=== PATIENT | female | born 1930 | race Caucasian/White ===

== ENCOUNTER 2018-02-28 10:30 | Emergency (ER) | payer MEDICARE, OTHER ==
[2018-02-28 11:32] VITALS: BP 146/65
--- NOTE | 2018-02-28 11:46 | UC ---
Laceration HPI - HPI Summary HPI Summary: 87 y/o female presents to the urgent care accompany by Daughter in-law c/o left elbow skin avulsion s/p scratching her elbow w/ the shower door handle this morning at 0930AM. Pt reports she was sitting in the toilet and she din't use the walker to get up and she slipped and scratched her left elbow w/ the shower door. Daughter in law states bleeding was mild and stopped w/ pressure and she didn't hit het ENGLISH or LOC. Pt states pain is mild 2/10 w/ touch and can move elbow and left arm w/o any problem. Pt denies numbness or tingling sensation over the left hand, dizziness, ENGLISH, SOB, chest pain, abdominal pain, N/V/D. Delvinarunter in lw states Pt probably had a Tetanus vaccines about 2 years ago, but will confirm this Friday w/ PCP since Pt has a f/u appt. - History Of Current Complaint Chief Complaint: UCLaceration Stated Complaint: S/P FALL LEFT ELBOW LACERATION Time Seen by Provider: 02/28/18 11:44 Hx Obtained From: Patient, Family/Data Center Manager - Arely in law Laceration Location: Elbow - left lateral side of elbow Onset/Duration: Sudden Onset - 0930AM, Lasting Hours - 2 hrs Severity: Mild Pain Intensity: 2 - at touch Pain Scale Used: 0-10 Numeric Aggravating Factors: Other: - touch - Allergies/Home Medications Allergies/Adverse Reactions: Allergies Allergy/AdvReac Type Severity Reaction Status Date / Time No Known Allergies Allergy Verified 02/28/18 11:27 Home Medications: Home Medications Atorvastatin* [Lipitor 10 MG*] 10 mg PO BEDTIME 02/28/18 [History Confirmed ] Carbamazepine [Carbatrol] 100 mg PO BID 02/28/18 [History Confirmed 02/28/18] Cholecalciferol TAB* [Vitamin D TAB*] 2,000 units PO DAILY 02/28/18 [History Confirmed 02/28/18] Triamterene/HCTZ 37.5-25 MG* [Dyazide CAP*] 1 cap PO DAILY 02/28/18 [History Confirmed 02/28/18] lamoTRIgine [Lamotrigine] 25 mg PO BID 02/28/18 [History Confirmed 02/28/18] PMH/Surg Hx/FS Hx/Imm Hx Previously Healthy: Yes Other Endocrine History: Vitamin D defficieny Cardiovascular History: Hypertension Neurological History: Dementia - alzheimer, Seizures - Surgical History Surgical History: None - Family History Known Family History: Positive: Hypertension - Social History Occupation: Retired Lives: With Family Alcohol Use: None Substance Use Type: None Smoking Status (MU): Never Smoked Tobacco Review of Systems Constitutional: Negative Skin: Bruising - and superficial laceration of avulsed skin in the left elbow s/ p injury Eyes: Negative ENT: Negative Respiratory: Negative Cardiovascular: Negative Gastrointestinal: Negative Genitourinary: Negative Motor: Negative Neurovascular: Negative Musculoskeletal: Negative Neurological: Negative Psychological: Negative Is Patient Immunocompromised?: No All Other Systems Reviewed And Are Negative: Yes Physical Exam - Summary Physical Exam Summary: Vital Signs Reviewed: Yes General: well developed, well nourished old thin female sitting in the examining table w/o any apparent distress Eye Exam: Normal Eyes: Positive: Conjunctiva Clear - PERRLA, EOMI, fundi grossly normal ENT: Positive: Normal ENT inspection, Hearing grossly normal, Pharynx normal, TMs normal Neck: Positive: Supple, Nontender, No Lymphadenopathy Respiratory: Positive: Chest non-tender, Lungs clear, Normal breath sounds, No respiratory distress Cardiovascular: Positive: RRR, No Murmur, Pulses Normal, Brisk Capillary Refill Abdomen Description: Positive: Nontender, No Organomegaly, Soft. Negative: CVA Tenderness (R), CVA Tenderness (L) Bowel Sounds: Positive: Present Musculoskeletal: Positive: Strength Intact, ROM Intact, No Edema Neurological: Positive: Alert, Muscle Tone Normal Psychological Exam: Normal Skin: Positive:Lateral side of LF elbow near the lateral epicondyle and proximal left forearm with a skin avulsion superficial laceration about 8.0cm in size, non bleeding, no foreign body observed. mild tenderness to palpation, mild ecchymosis around skin tear w/ bruising. FROM of LF arm and LF elbow, sensation intact, capillary refill brisk, and pulses WNL. Triage Information Reviewed: Yes Vital Signs: Initial Vital Signs Temp 97.4 F 02/28/18 11:22 Pulse 75 02/28/18 11:22 Resp 20 02/28/18 11:22 BP 146/65 02/28/18 11:22 Pulse Ox 100 02/28/18 11:22 Laceration Repair - Laceration Repair 1 Description: Irregular - semilunar skin avulsion superficial laceration Laceration Size After Repair: Length (cm) - 8.0 Modified For Repair: No Cleansing Completed Via Routine Prep: Yes Irrigation With Pressure Irrigation Device: Yes Closure Material: SteriStrips - 3 GEL foam applied Suture Of: Skin Laceration Course/Dx - Course/Dx Course Of Treatment: 87 y/o female presents to the urgent care accompany by Daughter in-law c/o left elbow skin avulsion s/p scratching her elbow w/ the shower door handle this morning at 0930AM. Pt reports she was sitting in the toilet and she din't use the walker to get up and she slipped and scratched her left elbow w/ the shower door. Daughter in law states bleeding was mild and stopped w/ pressure and she didn't hit het ENGLISH or LOC. Pt states pain is mild 2/ 10 w/ touch and can move elbow and left arm w/o any problem. Pt denies numbness or tingling sensation over the left hand, dizziness, ENGLISH, SOB, chest pain, abdominal pain, N/V/D. Daugter in lw states Pt probably had a Tetanus vaccines about 2 years ago, but will confirm this Friday w/ PCP since Pt has a f/u appt. Hx obtained. Pt w/Lateral side of LF elbow near the lateral epicondyle and proximal left forearm with a skin avulsion superficial laceration about 8.0cm in size, non bleeding, FROM of LF elbow on examination. LACERATION PROCEDURE NOTE: . Copious irrigation was done with saline and the wound explored. There was no FB or deep structure injury noted. wound cleaned w/ Iodine swabs. Laceration closed w/ 3 gel foams. Wound dressed w/ sterile gauze.The Pt tolerated the procedure well without adverse effects. Neurovascular intact and FROM of left elbow. Daughter inlaw will comfirm w/ PCP when ws last Tetanus Vaccine and will update if necessary. Daughter in law and Pt advised if any signs of infection develop to immediately return to the urgent care of PCP for further management and treatment. Pt's BP is elevated today advised to decrease salt in diet, monitor BP and f/u with PCP for further management. Daughter in law and Pt understood and agreed w/ D/C instructions and left the clinic ambulating A&Ox3. - Differential Dx - Laceration/Wound Differental Diagnoses: Abrasion, Avulsion, Laceration, Puncture Wound, Tendon Laceration Provider Diagnoses: 1- left elbow avulsion superficial laceration repair s/p injury. 2- Uncontrolled HTN Discharge - Sign-Out/Discharge Documenting (check all that apply): Patient Departure - Discharge Plan Condition: Stable Disposition: HOME Prescriptions: Bacitracin OINTMENT* 1 applic TOPICAL BID #1 tube Patient Education Materials: Laceration (ED), Acute Wound Care (ED), Low- Sodium Diet (ED) Referrals: Abram Mayo MD [Primary Care Provider] - 3 Days Additional Instructions: 1-Please apply topical antibiotic over the wound after the gel foam comes off. Keep wound clean and dry 2-Take Tylenol PO q6-8hrs prn for pain or swelling. Avoid felxion of your Rt elbow 3- If you develop fever or redness around your wound Please return to the urgent care of F/u w/ your PCP for further management. 4-Your BP is elevated today. please decrease salt in your diet, monitor BP and if it continues to be elevated please f/u with your PCP for further management 5- Please confirm w/ Pt's PCP on Friday when was her last Tetanus Vaccine and if it is more than 5 years. Pt needs a booster. - Billing Disposition and Condition Condition: STABLE Disposition: Home
[2018-02-28] MEDS ORDERED: Gelfoam 12-7 ADSORBABL SPONGE* 1 EA SPONGE TOPICAL ONE ×2 (11:56→11:59)
== END 2018-02-28 12:36 | disposition home or self-care (01) ==
LOC: UCCORT 10:30
DX: S51.012A Laceration without foreign body of left elbow, initial encounter (principal); W22.09XA Striking against other stationary object, initial encounter; Y93.89 Activity, other specified; Y92.002 Bathroom of unspecified non-institutional (private) residence as the place of occurrence of the external cause; I10 Essential (primary) hypertension; E55.9 Vitamin D deficiency, unspecified; R56.9 Unspecified convulsions; G30.9 Alzheimer's disease, unspecified; F02.80 Dementia in other diseases classified elsewhere, unspecified severity, without behavioral disturbance, psychotic disturbance, mood disturbance, and anxiety
CPT/HCPCS: 99202; A9270-GY; G0463